=== PATIENT | male | born 1955 | race Caucasian/White ===

== ENCOUNTER 2023-08-21 07:30 | Outpatient (CLI) | payer MEDICARE, SELFPAY ==
--- OUTSIDE RECORDS SUMMARY | 2023-08-25 12:35 | XMS_ITS | Clinical Summary ---
Author Organization [employer] [facility] [employer] [facility] Address [place], [place] [address] Care Team Providers Care Dandy Operator Name Role Phone Jn Park MD Primary Care Provider [phone] Allergies No known active allergies Medications Medication Sig Dispensed Refills Start Date End Date Status tamsulosin (FLOMAX) 0.4 mg capsule Daily 04/26/2020 Active oxybutynin XL (DITROPAN XL) 10 mg CR tabletIndications:Freq uency of micturition Take 1 Tablet (10 mg) by mouth once daily. 30 Tablet 11 07/13/2021 Active Social History Tobacco Use Types Packs/Day Years Used Date Smoking Tobacco: Former Cigarettes 1 50 0 10/09/1968 - 10/09/2018 Smokeless Tobacco: Never Tobacco Cessation:Counseling Given: Yes Alcohol Use Standard Drinks/Week Comments Yes 0 (1 standard drink = 0.6 oz pur e alcohol) beer nightly Sex and Gender Information Value Date Recorded Sex Assigned at Not on file Gender Identity Not on file Sexual Orientation Not on file Obstetrics History Last Filed Vital Signs Vital Sign Reading Time Taken Comments Blood Pressure 132/77 07/13/2021 3:18 PM CDT Pulse 65 07/13/2021 3:18 PM CDT Temperature - - Respiratory Rate 18 07/13/2021 3:18 PM CDT Oxygen Saturation 97% 07/13/2021 3:1 8 PM CDT Inhaled Oxygen Concentration - - Weight 77.8 kg (171 lb 9.6 oz) 07/13/2021 3:18 PM CDT Pt weighed with shoes on. Height - - Body Mass Index - - Plan of Treatment Health Maintenance Due Date Last Done Comments Tdap 1965 Depression screening for age 12+ 1966 BMI (ht and wt on same day) for age 18+ 02/17/1972 Hepatitis C screening for age 18-79 02/17/1972 Tetanus booster 1974 Colonoscopy through age 75 1999 Lipids for age 45-75 1999 Zoster (shingles) series for age 50+ (1 of 2) 02/17/2004 Medicare Wellness for age 65+ 2019 Pneumococcal series for age 65+ (1 of 1 - PCV) 2019 COVID-19 vaccine series (3 - 2022- season) 2022 11/23/2020, 11/02/2020 Influenza for age 65+ 11/11/2023 Care Teams Dandy Operator Relationship Specialty Start Date End Date Jn Park MD [address] [facility] [place] [id number] PCP - General Family Practice 08/18/20
== END 2023-08-21 07:31 | disposition home or self-care (01) ==
LOC: NFLDREF 08-25 12:33
PROVIDERS: PCP Family Medicine; Referring Provider Family Medicine; Visit Provider Family Medicine
DX: Z00.00 Encounter for general adult medical examination without abnormal findings (principal); E78.5 Hyperlipidemia, unspecified; R03.0 Elevated blood-pressure reading, without diagnosis of hypertension; N40.0 Benign prostatic hyperplasia without lower urinary tract symptoms
CPT/HCPCS: 80053; 80061

== ENCOUNTER 2023-10-01 13:50 | Emergency (ER) | payer MEDICARE, SELFPAY ==
[2023-10-01 13:56] VITALS: BP 156/87; PULSE 69; RESP 16; TEMP 37; O2SAT 97; BMI 23.7
--- NOTE | 2023-10-01 14:20 | CRLHL7_ITS ---
For Patients: As a result of the Century Cures Act, medical imaging exams and procedure reports are released immediately into your electronic medical record. You may view this report before your referring provider. If you have questions, please contact your health care provider. Indication: Injury, pain Technique: Three views left long finger Comparison: None Findings: Partial amputation of the left long finger distal phalanx noted. Multiple small bone fragments are present in the distal soft tissues along with overlying soft tissue injury. Degenerative changes are present at the distal interphalangeal joint with narrowing and spurring. Impression: Partial amputation of the left long finger at the distal tuft. Dictated by Mal Lackey MD @ 10/01/2023 2:45:29 PM (Electronically Signed)
--- OUTSIDE RECORDS SUMMARY | 2023-10-01 14:25 | XMS_ITS | Clinical Summary ---
Author Organization [employer] [facility] [employer] [facility] Address [place], [place] [address] Care Team Providers Care Academic Adviser Name Role Phone Jn Park MD Primary Care Provider [phone] Allergies No known active allergies Medications Medication [...] Influenza for age 65+ 11/11/2023 Care Teams Academic Adviser Relationship Specialty Start Date End Date Jn Park MD [address] [facility] [place] [address] PCP - General Family Practice 08/18/20
[2023-10-01] MEDS: LIDOCAINE 1% MDV 20 ML INJECTION (15:42)
--- NOTE | 2023-10-01 15:54 | ED_ITS ---
HPI - Wound/Laceration General Date Seen: 10/01/23 Chief Complaint: Laceration/Wound Stated Complaint: L index finger lac Time Seen by Provider: 10/01/23 13:59 Source: patient Mode of arrival: ambulatory Limitations: no limitations History of Present Illness HPI narrative: Patient is a very nice gentleman who suffered a laceration is left index failure from a table saw. This occurred just before he came in, he tells me does not have a lot of feeling in the tip of his finger, but this is from frostbite in a previous injury, no history of bleeding described discrepancy, no history of any diabetes or other immunosuppressive conditions. Related Data Home Medications ?Medication ?Instructions ?Recorded ?Confirmed multivitamin 1 tab PO QDAY 07/13/22 10/01/23 Previous Rx's ?Medication ?Instructions ?Recorded oxybutynin chloride 10 mg 10 mg PO DAILY #90 tabs 08/23/23 tablet,extended release 24 hr tadalafil 10 mg tablet 10 mg PO QDAY PRN sexual activity 08/23/23 #30 tabs tamsulosin 0.4 mg capsule 0.8 mg (2 x 0.4 mg) PO QDAY #180 08/23/23 caps cephalexin 500 mg capsule 500 mg PO BID #14 caps 10/01/23 Allergies Allergy/AdvReac Type Severity Reaction Status Date / Time No Known Allergies Allergy Unknown Verified 10/01/23 13:59 [facility] Social History What is your current living situation?: I presently have a place to live Problems where you live: no known problems In the past 12 months, utilities in danger of being shut off: no In past 12 months, lack of transportation kept you from medical appts, meetings, work, or getting things needed for daily living: no In the past 12 mos, have been you worried that your food would run out before you had money to buy more?: never true In the past 12 mos, the food you bought just didn't last and you didn't have money to buy more?: never true Smoking Status: Former smoker How often do you have a drink containing alcohol: never AUDIT-C Alcohol total score: 0 Non-prescribed substance use: denies use How often does anyone, including family, friends and others, physically hurt you : never How often does anyone, including family, friends and others, insult or talk down to you: never How often does anyone, including family, friends and others, threaten you with harm: never How often does anyone, including family, friends and others, scream or curse at you: never Little interest or pleasure in doing things: not at all Feeling down, depressed, or hopeless: not at all Exam Narrative: Exam Narrative: His tetanus is up-to-date. On examination left index finger there is clearly of piece of the distal finger that is off. The laceration runs across the dorsal portion of his left index finger, distal to the PIP joint. He has lost approximately half of his nail. Through the cut. A pad surface is all intact, and there appears to be into the distal tuft of the finger. Slight bleeding. Is noted, venous in nature, no arterial bleeding is noted. He has normal extension and flexion of his D IP joint. And normal cap refill the distal piece of his pad. Laceration length is approximately 2 in. X-ray shows a distal tuft fracture, I then anesthetized using standard 1% lidocaine without epinephrine, digital block. This resulted in good anesthesia. Wound is soaked in Hibiclens for approximately 15 minutes. Then irrigated out by myself with 200 mL of normal saline. I then used the cautery pen, and complicated laceration was repaired with 3 0 Prolene. Five sutures were used to bring the tough tendon cover up the distal bone. I did have to remove the distal part of the nail. But tried to preserve the nail bed. As best I could. Once done, there was approximately 5 mL of blood loss. Hemostasis was good, distal finger dressing was done, with bacitracin, and he is given a stack finger splint, sutures should come out in 10 days, we went over signs symptoms infection, and will be placed on prophylactic antibiotics because of the injury to the bone. Const: Vital Signs, click to edit/add: Vital Signs - 24 hr 10/01/23 13:56 Temperature 98.6 F Pulse Rate [Pulse Oximeter] 69 Respiratory Rate 16 Blood Pressure [Ri ght Upper Arm] 156/87 H Pulse Oximetry 97 Oxygen Delivery Me thod Room Air Documenting provider has reviewed patient's vital signs: yes Course Vital Signs Vital signs: Initial Vital Signs Temperature 98.6 F 10/01/23 13:56 Temperature Source Temporal Artery Scan 10/01/23 13:56 Pulse Rate 69 10/01/23 13:56 Respiratory Rate 16 10/01/23 13:56 Blood Pressure 156/87 H 10/01/23 13:56 Blood Pressure Mean 110 H 10/01/23 13:56 Blood Pressure Position Sitting 10/01/23 13:56 Pulse Oximetry 97 10/01/23 13:56 Oxygen Delivery Method Room Air 10/01/23 13:56 Vital Signs Temperature 98.6 F 10/01/23 13:56 Pulse Rate 69 10/01/23 13:56 Respiratory Rate 16 10/01/23 13:56 Blood Pressure 156/87 H 10/01/23 13:56 Pulse Oximetry 97 10/01/23 13:56 Oxygen Delivery Method Room Air 10/01/23 13:56 Temperature 98.6 F 10/01/23 13:56 Pulse Rate 69 10/01/23 13:56 Respiratory Rate 16 10/01/23 13:56 Blood Pressure 156/87 H 10/01/23 13:56 Pulse Oximetry 97 10/01/23 13:56 Oxygen Delivery Method Room Air 10/01/23 13:56 Medications Administered Medications: Discontinued Medications Generic Name Dose Route Start Last Admin Trade Name Freq PRN Reason Stop Dose Admin Lidocaine HCl 20 ml 10/01/23 14:30 10/01/23 15:42 Lidocaine 1% Mdv INJECTION 20 ml ONCE PRN Administration Discharge Plan Discharge Clinical Impression: Complicated laceration of finger Patient Disposition: Home, Self-Care Condition: Stable Instructions: Laceration (DC), Finger Laceration (ED) Additional Instructions: Home rest leave the splint on for the next 24 hours then use the other splint that I gave you, please put bacitracin daily on the wound after couple days you will likely just need a Band-Aid that will come off, wear the splint till 10 days out when you going to see your regular doctor for stitch removal take the antibiotics for the next 7 days. To prevent infection as there is a little chip of bone also. I do believe he will get an excellent functional result however Activity Level: Light activity Prescriptions: New cephalexin 500 mg capsule 500 mg PO BID Qty: 14 0RF No Action multivitamin Tablet 1 tab PO QDAY tadalafil 10 mg tablet 10 mg PO QDAY PRN (Reason: sexual activity) Qty: 30 12RF Rx Instructions: administer approximately 30min before sexual activity; do not use more than 1 dose per 24hrs oxybutynin chloride 10 mg tablet extended release 24hr 10 mg PO DAILY Qty: 90 3RF tamsulosin 0.4 mg capsule 0.8 mg PO QDAY Qty: 180 3RF Follow Up/Referrals: Jn Park MD [Primary Care Provider] - Stand Alone Forms: [employer] Info Instructions
== END 2023-10-01 15:45 | disposition home or self-care (01) ==
PROVIDERS: Emergency Provider Family Medicine; PCP Family Medicine
DX: S61.311A Laceration without foreign body of left index finger with damage to nail, initial encounter (principal); W31.2XXA Contact with powered woodworking and forming machines, initial encounter
CPT/HCPCS: 13131; 73140; 99283

== ENCOUNTER 2023-12-21 11:45 | Emergency (ER) | payer MEDICARE, SELFPAY ==
[2023-12-21 11:54] VITALS: BP 128/65; PULSE 63; RESP 18; TEMP 36.6; O2SAT 97; BMI 24.7
--- NOTE | 2023-12-21 11:58 | CRLHL7_ITS ---
For Patients: As a result of the Century Cures Act, medical imaging exams and procedure reports are released immediately into your electronic medical record. You may view this report before your referring provider. If you have questions, please contact your health care provider. INDICATION: Right calf pain and swelling COMPARISON: None. TECHNIQUE: Day-scale, color, and duplex Doppler imaging of the right lower extremity veins. Compression and augmentation attempted where anatomically and clinically feasible. FINDINGS: Laterality: Right Examined veins: Common femoral, femoral, popliteal, peroneal, posterior tibial Proximal greater saphenous The examined veins are patent with normal grayscale appearance and normal compressibility where anatomically feasible. Normal color Doppler flow. Normal venous waveforms on duplex Doppler ultrasound with normal augmentation. The left common femoral vein is sampled for comparison and is normal. There is a right popliteal fossa cyst that measures 1 x 2 x 7.5 cm. Large amount of debris and complexity and very little simple fluid within the cyst. Along the inferior margin of the cyst there is some ill-defined edema tracking along the superficial fascia of the muscular compartment. This area measures 5.7 x 1.7 x 2.0 cm IMPRESSION: 1. No right leg deep vein thrombosis. 2. Ruptured right popliteal fossa cyst. Dictated by Clare Bond MD @ 12/21/2023 12:49:52 PM (Electronically Signed)
--- NOTE | 2023-12-21 12:12 | ED_ITS ---
HPI - General Adult General Chief complaint: Extremity Pain/Injury, Lower Stated complaint: RT leg swelling pain sent from Time Seen by Provider: 12/21/23 11:58 Source: patient Mode of arrival: ambulatory Limitations: no limitations History of Present Illness HPI narrative: 68-year-old male presenting today with right lower extremity swelling. Patient states that about 1 month ago he was helping his son move and by the end of the day his right knee was sore. He noticed that the following day the entire right lower extremity from the knee to the ankle was swollen. The swelling of that extremity went down but the knee continue to bother him so he was seen in the urgent care and was placed on steroids. He states that it helped even further with the swelling he was having of the entire extremity. Psych however, 2 days ago the swelling came back. He denies chest pain shortness of breath. He did go into the urgent care today for the swelling. CBC was done which was unremarkable, D-dimer is elevated at 1.79. Patient was sent to the ED for further evaluation. Related Data Home Medications ?Medication ?Instructions ?Recorded ?Confirmed multivitamin 1 tab PO QDAY 07/13/22 12/21/23 Previous Rx's ?Medication ?Instructions ?Recorded oxybutynin chloride 10 mg 10 mg PO DAILY #90 tabs 08/23/23 tablet,extended release 24 hr tamsulosin 0.4 mg capsule 0.8 mg (2 x 0.4 mg) PO QDAY #180 08/23/23 caps Allergies Allergy/AdvReac Type Severity Reaction Status Date / Time No Known Allergies Allergy Unknown Verified 12/21/23 09:11 Review of Systems Status of ROS: Reports: 10 or more systems reviewed and unremarkable except as noted in History and below [facility] Social History What is your current living situation?: I presently have a place to live Problems where you live: no known problems In the past 12 months, utilities in danger of being shut off: no In past 12 months, lack of transportation kept you from medical appts, meetings, work, or getting things needed for daily living: no In the past 12 mos, have been you worried that your food would run out before you had money to buy more?: never true In the past 12 mos, the food you bought just didn't last and you didn't have money to buy more?: never true Smoking Status: Former smoker How often do you have a drink containing alcohol: never AUDIT-C Alcohol total score: 0 Non-prescribed substance use: denies use How often does anyone, including family, friends and others, physically hurt you : never How often does anyone, including family, friends and others, insult or talk down to you: never How often does anyone, including family, friends and others, threaten you with harm: never How often does anyone, including family, friends and others, scream or curse at you: never Little interest or pleasure in doing things: not at all Feeling down, depressed, or hopeless: not at all Exam Narrative: Exam Narrative: Well-nourished well-developed patient in no acute distress. Alert and oriented. Answers questions appropriately. Mood and affect are appropriate. Thoughts are goal oriented and rational. No tangential or magical thinking noted. Patient speaks in full sentences without needing to catch His breath. HEENT: Normocephalic atraumatic. Pupils are equally round reactive to light. Extraocular muscles are intact. Conjunctivae are moist without any icterus noted. Moist mucous membranes. Cardiovascular: Heart is regular rate and rhythm. Lungs: Clear to auscultation bilaterally no wheezes rhonchi or rales are appreciated. Extremities: Right lower extremity is markedly swollen from the knee all the way down to the ankle. Patient does appear to have a joint effusion on that side. Normal PT and DP pulses. He has a negative Homans sign. He does not have pain out of proportion to his exam. He has good DP and PT pulses. There is no pallor noted. Skin: Well perfused . There is no erythema noted. Const: Vital Signs, click to edit/add: Vital Signs - 24 hr 12/21/23 11:54 Temperature 97.9 F Pulse Rate [Right Pulse Oximeter] 63 Respiratory Rate 18 Blood Pressure [Ri ght Upper Arm] 128/65 Pulse Oximetry 97 Oxygen Delivery Me thod Room Air Course Course ED Course: CBC and D-dimer were reviewed. lower extremity ultrasound was ordered. Ultrasound did not show any evidence of DVT but did show a probable ruptured popliteal fossa cyst. Consulted with Dr. Strauss who recommends conservative management. Vital Signs Vital signs: Initial Vital Signs Temperature 97.9 F 12/21/23 11:54 Temperature Source Temporal Artery Scan 12/21/23 11:54 Pulse Rate 63 12/21/23 11:54 Respiratory Rate 18 12/21/23 11:54 Blood Pressure 128/65 12/21/23 11:54 Blood Pressure Mean 86 12/21/23 11:54 Blood Pressure Position Sitting 12/21/23 11:54 Pulse Oximetry 97 12/21/23 11:54 Oxygen Delivery Method Room Air 12/21/23 11:54 Vital Signs Temperature 97.9 F 12/21/23 11:54 Pulse Rate 63 12/21/23 11:54 Respiratory Rate 18 12/21/23 11:54 Blood Pressure 128/65 12/21/23 11:54 Pulse Oximetry 97 12/21/23 11:54 Oxygen Delivery Method Room Air 12/21/23 11:54 Temperature 97.9 F 12/21/23 11:54 Pulse Rate 63 12/21/23 11:54 Respiratory Rate 18 12/21/23 11:54 Blood Pressure 128/65 12/21/23 11:54 Pulse Oximetry 97 12/21/23 11:54 Oxygen Delivery Method Room Air 12/21/23 11:54 Medical Decision Making MDM Narrative Medical decision making narrative: 68-year-old male with a ruptured right-sided popliteal fossa cyst. We discussed compression, icing, elevation, NSAIDs. Follow-up with PCP as needed. Imaging Data Venous US: Attestation: I have reviewed the pertinent imaging results. Radiologist's impression: TECHNIQUE: Day-scale, color, and duplex Doppler imaging of the right lower extremity veins. Compression and augmentation attempted where anatomically and clinically feasible. FINDINGS: Laterality: Right Examined veins: Common femoral, femoral, popliteal, peroneal, posterior tibial Proximal greater saphenous The examined veins are patent with normal grayscale appearance and normal compressibility where anatomically feasible. Normal color Doppler flow. Normal venous waveforms on duplex Doppler ultrasound with normal augmentation. The left common femoral vein is sampled for comparison and is normal. There is a right popliteal fossa cyst that measures 1 x 2 x 7.5 cm. Large amount of debris and complexity and very little simple fluid within the cyst. Along the inferior margin of the cyst there is some ill-defined edema tracking along the superficial fascia of the muscular compartment. This area measures 5.7 x 1.7 x 2.0 cm IMPRESSION: 1. No right leg deep vein thrombosis. 2. Ruptured right popliteal fossa cyst. Discharge Plan Discharge Clinical Impression: Cyst Patient Disposition: Home, Self-Care Condition: Stable Additional Instructions: There is a cyst behind her knee that has ruptured, causing swelling of the leg. The best course of treatment at this time would be to elevate your leg as much as possible to help it drain, wear compression stocking when your out walking around to prevent it from swelling more. You can also ice the tender areas of the knee and the back of the calf as needed. Do not apply ice directly to the skin and do not ice for more than 20 minutes at a time. Lastly, you can take ibuprofen or Tylenol as needed/as directed for discomfort. This can take several weeks to go back to normal. Follow-up with your primary care provider as needed. Prescriptions: No Action multivitamin Tablet 1 tab PO QDAY oxybutynin chloride 10 mg tablet extended release 24hr 10 mg PO DAILY Qty: 90 3RF tamsulosin 0.4 mg capsule 0.8 mg PO QDAY Qty: 180 3RF Follow Up/Referrals: Jn Park MD [Primary Care Provider] - Stand Alone Forms: [employer]oub Info Instructions
--- OUTSIDE RECORDS SUMMARY | 2023-12-21 13:16 | XMS_ITS | Clinical Summary ---
Author Organization [employer] [facility] [employer] [facility] Address [place], [place] [address] Care Team Providers Care Student Records Coordinator Name Role Phone Jn Park MD Primary Care Provider [phone] Allergies No known active allergies Medications Medication [...] 1 - PCV) 2019 COVID-19 vaccine series (2023- season) 2023 11/23/2020, 11/02/2020 Influenza for age 65+ 11/11/2023 Care Teams Student Records Coordinator Relationship Specialty Start Date End Date Jn Park MD [address] [facility] [place] [address] PCP - General Family Practice 08/18/20
== END 2023-12-21 13:30 | disposition home or self-care (01) ==
PROVIDERS: Emergency Provider Family Medicine; PCP Family Medicine
DX: M66.0 Rupture of popliteal cyst (principal)
CPT/HCPCS: 85379; 93971; 99283; 99284

== ENCOUNTER 2024-11-17 07:45 | Outpatient (CLI) | payer MEDICARE, SELFPAY | END 2024-11-17 07:46 | disposition home or self-care (01) | LOC: NFLDREF 11-20 08:05 | PROVIDERS: PCP Family Medicine; Referring Provider Family Medicine; Visit Provider Family Medicine | DX: Z12.5 Encounter for screening for malignant neoplasm of prostate (principal); E78.5 Hyperlipidemia, unspecified | CPT/HCPCS: 80053; 80061; G0103 ==